=== PATIENT | female | born 1980 | race American Indian/Alaskan Native ===

== ENCOUNTER 2021-10-26 16:40 | Emergency (ER) | payer MEDICAID, SELFPAY ==
[2021-10-26 17:52] VITALS: BP 164/78; PULSE 108; RESP 16; TEMP 36.6; O2SAT 98; BMI 33.1
--- NOTE | 2021-10-26 19:06 | ED_ITS ---
HPI - Eye Problem <BEATRIZ Mcintosh - Last Filed: 10/26/21 21:22> General Chief complaint: Upper Respiratory Symptoms Stated complaint: conjunctivitis Time Seen by Provider: 10/26/21 18:33 Mode of arrival: Ambulatory History of Present Illness HPI Narrative: This is a 40-year-old female who presents to the emergency department complaining of thick goopy discharge coming from both of her eyes for the last 3 days. She states that this happened to her once before when she was in her 20s. Patient states that a toilet may have splashed up into her eyes after a flushed a few days ago. She thinks this is potentially why her eyes now have an infection. She denies any new STIs or any exposure to known STI. She denies any vision changes, eye pain with eye movement, headache, nausea vomiting or other symptom. She states that both of her eyes feel irritated. She endorses that she is allergic to erythromycin, ciprofloxacin, and amoxicillin. She states that she can have polymyxin B drops and this has worked for her in the [facility]. She denies any trauma or foreign body. Related Data Previous Rx's Medication Instructions Recorded polymyxin B sulfate 10,000 2 drp EYE-BOTH QID conjunctivitis 10/26/21 unit-trimethoprim 1 mg/mL eye 7 days #10 mL drops (Polytrim) Allergies Allergy/AdvReac Type Severity Reaction Status Date / Time amoxicillin AdvReac Intermediate Verified 10/26/21 17:58 ciprofloxacin [From Cipro] AdvReac Intermediate Verified 10/26/21 17:58 erythromycin base AdvReac Intermediate Verified 10/26/21 17:58 Review of Systems <BEATRIZ Mcintosh - Last Filed: 10/26/21 21:22> Review of Systems Narrative: Review of systems is negative for acute abnormalities unless otherwise noted in HPI Patient History <BEATRIZ Mcintosh - Last Filed: 10/26/21 21:22> Social History Smoking Status: Never smoker Smoking Status: Never smoker Substance Use Type: does not use Exam <BEATRIZ Mcintosh - Last Filed: 10/26/21 21:22> Narrative Exam Narrative: Reviewed vitals signs and nursing notes. General: cooperative, comfortable, in no acute distress, well groomed HEENT: symmetrical facial expressions, moist mucous membranes, EOMs intact, bilateral conjunctival injection and scleral injection bilaterally, copious amount of purulent/thick white/yellow discharge coming from bilateral conjunctiva. Culture obtained and is pending Cardiovascular: regular rate and rhythm, no peripheral edema, warm extremities Neuro: normal speech and cognition, A&O x3, ambulatory, clear speech Psych: mental status is grossly normal, congruent mood, normal affect, pleasant and cooperative Initial Vital Signs Initial Vital Signs: Vital Signs Temperature 97.8 F 10/26/21 17:52 Pulse Rate 108 H 10/26/21 17:52 Respiratory Rate 16 10/26/21 17:52 Blood Pressure 164/78 H 10/26/21 17:52 Pulse Oximetry 98 10/26/21 17:52 Oxygen Delivery Method 10/26/21 17:52 <Jaki Peace DO - Last Filed: 10/27/21 08:46> Initial Vital Signs Initial Vital Signs: Vital Signs Temperature 97.8 F 10/26/21 17:52 Pulse Rate 108 H 10/26/21 17:52 Respiratory Rate 16 10/26/21 17:52 Blood Pressure 164/78 H 10/26/21 17:52 Pulse Oximetry 98 10/26/21 17:52 Oxygen Delivery Method 10/26/21 17:52 Course <BEATRIZ Mcintosh - Last Filed: 10/26/21 21:22> Orders Ordered: ED Orders 10/26/21 18:09 Eye culture Stat Vital Signs Vital signs: Vital Signs - 8 hr 10/26/21 17:52 Temperature 97.8 F Pulse Rate 108 H Respiratory Rate 16 Blood Pressure 164/78 H Pulse Oximetry 98 Oxygen Delivery Method Room Air <Jaki Peace DO - Last Filed: 10/27/21 08:46> Orders Ordered: ED Orders 10/26/21 18:09 Eye culture Stat Vital Signs Vital signs: Vital Signs - 8 hr 10/26/21 17:52 Temperature 97.8 F Pulse Rate 108 H Respiratory Rate 16 Blood Pressure 164/78 H Pulse Oximetry 98 Oxygen Delivery Method Room Air MDM - Eye Problem <BEATRIZ Mcintosh - Last Filed: 10/26/21 21:22> MDM Narrative Medical decision making narrative: This is a 40-year-old female presents to the emergency department for evaluation of her bilateral conjunctivitis with thick white/yellow discharge coming from bilateral conjunctiva over the last 3 days, patient states it has been worsening. She has a history of allergy to amoxicillin, ciprofloxacin, and erythromycin but states she has tolerated polymyxin B drops in the past without difficulty. Culture obtained of discharge from her eye discharge and g stain shows scant Gram-positive cocci with occasional WBC. Patient was prescribed polymyxin B drops and given strict return precautions, encouraged to follow-up with Dr. Karen aldridge if this gets any worse or if her eyelids well to closure. Patient is appropriate and amenable to discharge home. Vital signs are stable on repeat examination is unremarkable. Patient has been informed of results. Patient has been given strict return to ER precautions for any new or worsening symptoms. Patient understands to follow up closely with outpatient providers as instructed. Patient understands plan and agrees to discharge home. All questions and concerns answered at this time. Discharge Plan Departure Patient Disposition: Home Clinical Impression: Conjunctivitis Qualifiers: Conjunctivitis type: acute Acute conjunctivitis type: unspecified Laterality: bilateral Qualified Code(s): H10.33 - Unspecified acute conjunctivitis, bilateral Instructions: Conjunctivitis Activity Restrictions/Additional Instructions: *You have been diagnosed with bilateral conjunctivitis. If this is not start to improve with your eyedrops, please follow-up with Dr. Karen aldridge or come to the emergency department for another evaluation. The culture will show us which type of bacteria this is and will call you if you antibiotic change. If you develop eye pain with eye movement or if your eyes swell shut, please come back to the emergency department. *What to do: *Please continue to take your regular medications as directed. [ x] New medication prescriptions sent to your pharmacy: [Yusra moore] [ ] New medication written as a paper prescription [ ] No new medications given *Please follow up with your primary care provider in 2-3 days, call for an appointment. Let them know you were seen in the Emergency Department and that we asked that you be seen for follow-up. We will electronically transmit a record of today's note if your PCP is in our system *If you do not have a primary care provider please contact [phone] to establish care with one of the [facility] primary care providers. *Return to Emergency Department if you should have any new, worsening, or concerning symptoms, such as [fever greater than 101F, chills, worsening pain, persistent vomiting or other bothersome symptoms]. Prescriptions: New polymyxin B sulf-trimethoprim [Polytrim] 10,000 unit- 1 mg/mL drops 2 drp EYE-BOTH QID 7 Days Qty: 10 1RF Visit Report Forms: Patient Portal/API <Jaki Peace DO - Last Filed: 10/27/21 08:46> Cosign ED Attending Cosignature Attestation: I was immediately available in the department for consultation. Documentation has been reviewed. I agree with assessment and plan.
--- NOTE | 2021-10-26 19:08 | PC.NURSE ---
Eye redness and pain x 2 days.
== END 2021-10-26 19:09 | disposition home or self-care (01) ==
PROVIDERS: Emergency Provider Nurse Practitioner Critical Care Medicine
DX: H10.33 Unspecified acute conjunctivitis, bilateral (principal)
CPT/HCPCS: 87070; 87147; 87205; 99281; 99282

== ENCOUNTER 2024-04-12 02:59 | Inpatient (IN) | payer OTHER, MEDICAID, SELFPAY ==
[2024-04-12] VITALS (14 sets, daily range): BP systolic 155–188; BP diastolic 70–100; PULSE 74–117; RESP 16–30; TEMP 36.4–37.1; O2SAT 90–99; BMI 31.9; BMI 37.3
--- NOTE | 2024-04-12 03:04 | DI.RAD.S_ITS ---
PROCEDURE: XR CHEST 1V INDICATIONS: sob TECHNIQUE: One view of the chest was acquired. COMPARISON: None. FINDINGS: Surgical changes and devices: None. Lungs and pleura: Lungs patchy opacities throughout the right lung most predominantly within the right upper lobe. Small right pleural effusion. No pneumothorax.. Mediastinum: Mediastinal contours appear normal. Heart size is normal. Bones and chest wall: No suspicious bony lesions. Overlying soft tissues appear unremarkable. IMPRESSION: Multifocal opacities of the right lung concerning for pneumonia. Dictated by: Luis Bhakta M.D. on 04/12/2024 at 7:59 Approved by: Luis Bhakta M.D. on 04/12/2024 at 8:01
--- NOTE | 2024-04-12 03:04 | ED.SOB ---
HPI - SOB/Dyspnea General Chief Complaint: Shortness of Breath/Dyspnea Stated Complaint: SOB Time Seen by Provider: 04/12/24 03:04 History of Present Illness HPI Narrative: 43-year-old female past medical history asthma can be the from home for evaluation of shortness of breath ongoing persistent for the past few days worsening today, states that she did not use her albuterol inhaler at home because it ?makes her feel weird. Patient denies any recent contacts denies any recent travel denies any other symptoms such as headache visual disturbances chest pain fever chills nausea vomiting abdominal pain or any other GI/ symptoms time. Related Data Previous Rx's Medication Instructions Recorded polymyxin B sulfate 10,000 2 drp EYE-BOTH QID conjunctivitis 10/26/21 unit-trimethoprim 1 mg/mL eye 7 days #10 mL drops (Polytrim) Allergies Allergy/AdvReac Type Severity Reaction Status Date / Time amoxicillin AdvReac Intermediate Verified 10/26/21 17:58 ciprofloxacin [From Cipro] AdvReac Intermediate Verified 10/26/21 17:58 erythromycin base AdvReac Intermediate Verified 10/26/21 17:58 Review of Systems Review of Systems Narrative: General: Denies fever, chills, weight loss HEENT: Denies headache, eye drainage, eye irritation, head trauma, sore throat, voice change Cardiovascular: Denies any chest pain, palpitations, shortness of breath, tachycardia Respiratory: Positive shortness of breath, cough, wheeze, denies stridor GI/: Denies any abdominal pain, nausea, vomiting, diarrhea, bright red blood per rectum, melanotic stools, urinary frequency, urinary retention, dysuria, hematuria MSK: Denies any joint pain, muscle pains, swelling Skin: Denies any rashes, lesions, discoloration Neuro: Denies any headache, lightheadedness, dizziness, fainting, weakness Psych: Denies SI/HI Patient History Social History Smoking Status: Never smoker Smoking Status: Never smoker Exam Narrative Exam Narrative: General: Cooperative, comfortable, well-developed, not in acute distress HEENT: Normocephalic, atraumatic, PERRLA, normal sclera, eyelids normal, Neck: Active full range of motion, atraumatic Chest: Normal to inspection, negative crepitus, no overlying erythema ecchymosis Respiratory: Mild expiratory wheezes in bilateral lower lung [place], Normal respiratory effort, not in acute respiratory distress, clear to auscultation bilaterally negative cough, tachypnea, rhonchi, rales Cardiology: Regular rate rhythm negative gallop, murmur, rubs GI/: Normal to inspection, soft, nonrigid, no tenderness to palpation, exam deferred MSK: Full range of active range of motion of all 4 extremities, atraumatic Skin: No rashes lesions noted Neuro: Alert awake oriented x3, moves all 4 extremities spontaneously, cranial nerves intact, able to answer all questions appropriately follows commands appropriately Psych: Cooperative, negative suicidal or homicidal ideations Initial Vital Signs Initial Vital Signs: Vital Signs Pulse Rate 114 H 04/12/24 03:05 Respiratory Rate 30 H 04/12/24 03:05 Blood Pressure 188/100 H 04/12/24 03:05 Pulse Oximetry 90 L 04/12/24 03:05 Oxygen Delivery Method Room Air 04/12/24 03:05 Course Orders Ordered: ED Orders 04/12/24 03:04 CXR [XR chest 1V] Stat 04/12/24 03:05 EKG-12 Lead Stat 04/12/24 03:11 EKG-12 Lead Routine 04/12/24 03:18 CBC Auto Diff [Complete Blood Count AUTO DIFF] Stat CMP [Comprehensive Metabolic Panel] Stat Covid-19 + FLU A/B + RSV - PCR Stat Lipase Stat MAG [Magnesium] Stat NT-proBNP (BNP-Adult 18+) Stat Troponin & CK Cardiac Panel Stat Discontinued Medications Albuterol (Albuterol 2.5 Mg/3 Ml Neb (Adult)) 2.5 mg INH NOW ONE Stop: 04/12/24 03:05 Last Admin: 04/12/24 03:16 Dose: 2.5 mg Documented By: LARON Aspirin (Aspirin 81 Mg Chew Tab) 324 mg PO NOW ONE Stop: 04/12/24 04:08 Furosemide (Furosemide 40 Mg/4 Ml Vial) 20 mg IV NOW ONE Stop: 04/12/24 04:02 Magnesium Sulfate (Magnesium Sulfate) 2 gm in 50 mls @ 150 mls/hr IV NOW ONE Stop: 04/12/24 03:33 Last Infusion: 04/12/24 03:48 Dose: Infused Documented By: CLAIRE Co-signed By: TORSTEN Admin: 04/12/24 03:25 Dose: 150 mls/hr Documented By: TORSTEN Co-signed By: CLAIRE Ceftriaxone Sodium 1,000 mg/ (Sodium Chloride) 100 mls @ 200 mls/hr IV NOW ONE Stop: 04/12/24 04:05 Doxycycline Hyclate 100 mg/ (Sodium Chloride) 100 mls @ 100 mls/hr IV NOW ONE Stop: 04/12/24 04:05 Methylprednisolone (Methylprednisolone 125 Mg/2 Ml Vial) 125 mg IV NOW ONE Stop: 04/12/24 03:05 Last Admin: 04/12/24 03:30 Dose: 125 mg Documented By: TORSTEN Vital Signs Vital signs: Vital Signs - 8 hr 04/12/24 03:05 04/12/24 03:17 Pulse Rate 114 H 117 H Respiratory Rate 30 H 20 Blood Pressure 188/100 H Pulse Oximetry 90 L 95 Oxygen Delivery Method Room Air Room Air Fraction of Inspired Oxygen 21 MDM - SOB/Dyspnea Differential Diagnosis Differential diagnosis: Likely congestive heart failure, community acquired pneumonia, asthma with exacerbation and other (Electrolyte abnormality) Lab Data 04/12/24 03:18 04/12/24 03:18 Labs: Lab Results 04/12/24 Range/Units 03:18 WBC 13.5 H (4.5-11.0) X10^3/uL RBC 4.60 (4.0-5.2) X10^6/uL Hgb 12.9 (12.0-16.0) g/dL Hct 38.1 (36-46) % MCV 82.8 (80-100) fL MCH 28.0 (26-34) PG MCHC 33.8 (30-36) % RDW 13.3 (11.6-14.8) % Plt Count 314 (150-400) X10^3/uL Neut % (Auto) 88.1 H (50-75) % Lymph % (Auto) 3.6 L (25-40) % Barber % (Auto) 7.9 (3-14) % Eos % (Auto) 0.2 L (2-4) % Baso % (Auto) 0.2 (0-2) % Neut # (Auto) 53263 H (6310-4805) /uL Lymph # (Auto) 500 L (7877-5486) /uL Barber # (Auto) 1100 H (0-900) /uL Eos # (Auto) 0 (0-450) /uL Baso # (Auto) 0 (0-100) /uL Sodium 123 L (137-145) mmol/L Potassium 4.0 (3.4-5.1) mmol/L Chloride 94 L (98-107) mmol/L Carbon Dioxide 23 (22-32) mmol/L BUN 13 (7-17) mg/dL Creatinine 0.95 (0.52-1.04) mg/dL Estimated GFR > 60 (>60) mL/min BUN/Creatinine Ratio 13.7 (6-22) Glucose 331 H (70-100) mg/dL Calcium 8.4 (8.4-10.2) mg/dL Magnesium 1.6 (1.6-2.3) mg/dL Total Bilirubin 0.5 (0.2-1.3) mg/dL AST 45 H (14-36) IU/L ALT 34 (<35) IU/L Alkaline Phosphatase 87 (38-126) U/L Total Creatine Kinase 336 H (30-135) U/L Troponin I 0.072 H (0.01-0.034) ng/mL NT-Pro-B Natriuret Pep 11013 H (<125) pg/mL Total Protein 7.2 (6.3-8.2) g/dL Albumin 3.6 (3.5-5.0) g/dL Globulin 3.6 (1.7-4.1) g/dL Albumin/Globulin Ratio 1.0 (1.0-2.8) Lipase 32 (23-300) U/L SARS-CoV-2 (PCR) Negative (Negative) Influenza A (RT-PCR) Flu a positive H (NEGATIVE) Influenza B (RT-PCR) Flu b negative (NEGATIVE) RSV (PCR) Negative (Negative) Imaging Data Chest x-ray: Radiologist's Impression: Preliminary read showing pleural effusion as well as patchy infiltrate consistent with possible pneumonia versus pulmonary edema, ECG Data Interpretation: EKG interpreted ED physician sinus tachycardia 114 beats per minute QTC [address] changes no STEMI MDM Narrative Medical decision making narrative: 43-year-old female past medical history of asthma presents from home for evaluation shortness of breath ongoing persistent for the past several days states he did not use her albuterol inhaler prior to arrival given the fact that it ?makes her feel weird ?patient had lab work imaging performed here in the emergency department, EKG nonischemic in nature, patient's sodium 123 however corrected for her glucose of 331 is 129. Patient with mild leukocytosis of 13.5. Patient's BNP significantly elevated at 12,600, troponin 0.072 most likely type 2 spilled given patient with CHF. Patient states no history of therefore new onset CHF has never had Lasix we will give 20 mg IV Lasix given naive. Chest x-ray consistent with pleural effusion as well as right upper lobe hazy infiltrate pneumonia versus pulmonary edema, however given the fact that patient has leukocytosis complaining of shortness of breath will treat for pneumonia, Rocephin doxy ordered Given significantly elevated BNP with new onset CHF patient require admission to the hospital The patient's management plan was discussed Dr. Judd, who agrees to admit the patient to their service and assumes care of this patient at this time. Full admission orders will be placed by the primary team. Discharge Plan Departure Patient Disposition: Admitted As Inpatient Clinical Impression: New onset of congestive heart failure, Pneumonia, Influenza A
--- NOTE | 2024-04-12 03:05 | EKG_ITS ---
[place] [id number] [place] [id number] Test Date: 2024-04-12 Pat Name: Portillo Terry Department: [facility] Room: Gender: Female Csm Consultant: : 1980 Requested By: Order Number: [id number] Reading MD: John Villegas Measurements Intervals [place] Rate: 114 P: 57 KS: 144 QRS: -5 QRSD: 88 T: 85 QT: 312 QTc: 430 Interpretive Statements Sinus tachycardia ST elevation in one lead, V2 Electronically Signed On 04-12-2024 8:01:58 PST by John Villegas
--- NOTE | 2024-04-12 03:11 | EKG_ITS ---
[place] [id number] [place] [id number] Test Date: 2024-04-12 Pat Name: Portillo Terry Department: [facility] Room: Gender: Female Curtain Hemmer Automatic: : 1980 Requested By: Order Number: [id number] Reading MD: John Villegas Measurements Intervals [place] Rate: 114 P: 64 AK: 152 QRS: 106 QRSD: 90 T: 40 QT: 310 QTc: 427 Interpretive Statements Sinus tachycardia Rightward axis Nonspecific ST abnormality Electronically Signed On 04-12-2024 13:54:32 PST by John Villegas
[2024-04-12] MEDS: ALBUTEROL 2.5 MG/3 ML NEB (ADULT) INH (03:16)
[2024-04-12] MEDS: MAGNESIUM SULFATE 2 GM/50 ML PIGGYBACK IV (03:25)
[2024-04-12 03:27] LABS: Add Manual Diff / Slide Review NO; Basophils Absolute Auto 0 /uL (0-100); Basophils Percent Auto 0.2 % (0-2); Eosinophils Absolute Auto 0 /uL (0-450); Eosinophils Percent Auto 0.2 % (2-4); Hematocrit 38.1 % (36-46); Hemoglobin 12.9 g/dL (12.0-16.0); Lymphocytes Absolute Auto 500 /uL (1100-4500); Lymphocytes Percent Auto 3.6 % (25-40); Mean Corpuscular HGB Conc 33.8 % (30-36); Mean Corpuscular Volume 82.8 fL (80-100); Monocytes Absolute Auto 1100 /uL (0-900); Monocytes Percent Auto 7.9 % (3-14); Neutrophils Absolute Auto 11900 /uL (1500-7000); Neutrophils Percent Auto 88.1 % (50-75); Platelet Count 314 X10^3/uL (150-400); Red Cell Distribution Width 13.3 % (11.6-14.8); White Blood Cell Count 13.5 X10^3/uL (4.5-11.0)
[2024-04-12] MEDS: methylPREDNISolone 125 MG/2 ML VIAL IV (03:30)
[2024-04-12 03:37] LABS: Alanine Aminotransferase 34 IU/L (<35); Albumin 3.6 g/dL (3.5-5.0); Alkaline Phosphatase 87 U/L (38-126); Aspartate Aminotransferase 45 IU/L (14-36); BUN Creatinine Ratio 13.7 (6-22); Bilirubin Total 0.5 mg/dL (0.2-1.3); Blood Urea Nitrogen 13 mg/dL (7-17); Calcium 8.4 mg/dL (8.4-10.2); Carbon Dioxide 23 mmol/L (22-32); Chloride 94 mmol/L (98-107); Creatine Kinase 336 U/L (30-135); Estimated Glomerular Filt Rate > 60 mL/min (>60); Globulin 3.6 g/dL (1.7-4.1); Glucose 331 mg/dL (70-100); HEMOLYSIS < 15 (0-50); Lipase 32 U/L (23-300); Magnesium 1.6 mg/dL (1.6-2.3); Sodium 123 mmol/L (137-145); Total Protein 7.2 g/dL (6.3-8.2)
[2024-04-12 03:48] LABS: NT-proBNP (BNP-Adult 18+) 12600 pg/mL (<125); Troponin I 0.072 ng/mL (0.01-0.034)
[2024-04-12 04:03] LABS: Influenza A - CEPHEID Flu A POSITIVE (NEGATIVE); Influenza B - CEPHEID Flu B NEGATIVE (NEGATIVE); Respiratory Syncytial Virus Negative (Negative)
[2024-04-12 04:12] LABS: COVID-19 CEPHEID 4-PLEX PCR Negative (Negative)
[2024-04-12] MEDS: FUROSEMIDE 40 MG/4 ML VIAL 20 MG IV (04:28)
[2024-04-12] MEDS: ASPIRIN 81 MG CHEW TAB 324 MG PO (04:29)
--- NOTE | 2024-04-12 04:36 | DI.ECHO.S_ITS ---
[facility]---------+ Hospital : : [address] : : [place] : : [id number] : : Phone: [phone] Echocardiogram Report + + :Name: NANCY HERNANDEZ Study Date: 04/12/2024 Height: 68 in : :Hospital ReadingLocation: Weight: 210 lb : : Gender: Female BSA: 2.1 m2 : :: 1980 Age: 43 yrs BP: 165/93 mmHg: :Reason For Study: CONGESTIVE HEART FAILURE : :Ordering Physician: PINO, : :MAGDIEL Alvarado MD Performed By: Natali Chris : :Referring: MAGDIEL PRINGLE MD : + + Interpretation Summary 1) Normal left ventricular thickness and size with moderately to severely systolic function (EF 30-35%). 2) Mildly enlarged right ventricle with normal function. 3) There is mild mitral regurgitation. 4) The IVC is dilated (diameter is greater than 2.1 cm) and it collapses less than 50% with a sniff. This suggests a high right atrial pressure of 15 mm Hg. 5) No prior Echo available for comparison. Procedure: A two-dimensional transthoracic echocardiogram with color flow and Doppler was performed. The study quality was technically adequate. There is no prior echocardiogram noted for this patient. The patient was in sinus rhythm with heart rates between 73-91 bpm during the exam. Left Ventricle: LV diastolic volume/ BSA of 71ml/m2 suggests moderate LV dilation. There is normal left ventricular wall thickness. The ejection fraction is estimated to be 30-35%. There is moderate to severe global hypokinesis of the left ventricle. Right Ventricle: The right ventricle is mildly dilated. The right ventricular systolic function is normal. Atria: The left atrium is mildly dilated. Right atrial size is normal. There is no Doppler evidence for an interatrial shunt. Mitral Valve: The mitral valve leaflets appear mildly thickened, but open well. The mitral valve leaflets appear to open well. There is mild mitral regurgitation. Aortic Valve: The aortic valve is trileaflet. The aortic valve opens well. There is no aortic valve stenosis. No aortic regurgitation is present. Tricuspid Valve: The tricuspid valve leaflets are thin and pliable. There is a trace or physiologic amount of tricuspid regurgitation. Pulmonary artery pressures cannot be estimated because of the lack of a measurable TR jet velocity. Pulmonic Valve: The pulmonic valve leaflets are thin and pliable; valve motion is normal. There is a trace or physiologic amount of pulmonic regurgitation. Great Vessels: The aortic root is normal size. The dimensions of the ascending aorta are normal. The IVC is dilated (diameter is greater than 2.1 cm) and it collapses less than 50% with a sniff. This suggests a high right atrial pressure of 15 mm Hg. Pericardium/ Pleura There is no pericardial effusion. There is no pleural effusion. MMode/2D Measurements & Calculations LVIDd: 6.1 cm LVOT diam: 2.2 cm LVIDs: 5.1 cm Ao root diam: 2.9 cm FS: 16.3 % asc Aorta Diam: 3.3 cm EPSS: 1.7 cm Ao Arch Diam (Prox Trans): 2.4 cm IVSd: 0.98 cm LVPWd: 0.96 cm LV edmonds. diameter/BSA (cm/m^2): 2.9 LV sys. diameter/BSA (cm/m^2): 2.4 LA A2 area: 24.9 cm2 RA long axis: 4.6 cm LA A4 area: 18.9 cm2 RA area: 16.0 cm2 LA length (vol): 4.7 cm RA vol: 47.5 ml LA vol: 85.6 ml RA : 22.8 ml/m2 LA vol index: 41.0 ml/m2 IVC diam: 2.2 cm RVD1 (basal): 4.1 cm RVD2 (mid): 3.3 cm TAPSE: 2.6 cm Doppler Measurements & Calculations Ao V2 max: 133.3 cm/sec LVOT Max Rishi: 93.8 cm/sec Ao V2 mean: 105.9 cm/sec LV V1 max P.5 mmHg Ao max P.1 mmHg LV V1 VTI: 20.5 cm Ao mean P.7 mmHg DEEPALI(I,D): 2.8 cm2 Ao V2 VTI: 28.6 cm DEEPALI(V,D): 2.7 cm2 sev ratio: 0.72 DEEPALI indexed to BSA (cm^2/m^2): 1.3 MV E max rishi: 90.3 cm/sec PA V2 max: 98.4 cm/sec MV A max rishi: 95.8 cm/sec PA V2 mean: 67.3 cm/sec MV E/A: 0.94 PA mean P.0 mmHg Med Peak E' Rishi: 6.3 cm/sec PA pr(Accel): 22.5 mmHg E/E' med: 14.3 Lat Peak E' Rishi: 7.0 cm/sec E/E' lat: 12.9 E/e' average: 13.6 MV dec time: 0.17 sec SV(LVOT): 79.8 ml Reading Physician:01:57 PM
[2024-04-12] MEDS: cefTRIAXone 1,000 MG in SODIUM CHLORIDE 0.9% 100 ML 200 MG IV ×2 (04:40→10:30)
--- NOTE | 2024-04-12 04:40 | PM.HP.1 ---
History of Present Illness History of Present Illness Chief complaint: SOB Narrative: 43F with only PMH of asthma presents with 2+ week h/o of worsening dyspnea. On arrival, she was hypertensive, tachycardic, and mildly hypoxic requiring supplemental oxygen. Initial diagnostics showed RUL pneumonia, influenza A, and new onset CHF with BNP 12,600 and mild troponin leak of 0.072. CK was mildly elevated at 336. She was also leucocytic at 13.5 with left shift, hyperglycemic at 331, and hyponatremic at 123. She was given a low dose of Lasix. Blood pressure has reduced some but she is still hypertensive at 160s/80s and tachycardic at 105. [facility] Social History Smoking Status: Never smoker Meds Home Medications and Allergies Home Medications Medication Instructions Recorded Confirmed Type polymyxin B sulfate 10,000 2 drp EYE-BOTH QID conjunctivitis 10/26/21 Rx unit-trimethoprim 1 mg/mL eye 7 days #10 mL drops (Polytrim) Allergies Allergy/AdvReac Type Severity Reaction Status Date / Time amoxicillin AdvReac Intermediate Verified 10/26/21 17:58 ciprofloxacin [From Cipro] AdvReac Intermediate Verified 10/26/21 17:58 erythromycin base AdvReac Intermediate Verified 10/26/21 17:58 Review of Systems Review of Systems Narrative: as per hpi. rest of 10-ros negative. Exam Vital Signs (past 8 hours): - 04/12/24 03:05 04/12/24 03:17 Pulse Rate 114 H 117 H Respiratory Rate 30 H 20 Blood Pressure 188/100 H Pulse Oximetry 90 L 95 Oxygen Delivery Method Room Air Room Air Fraction of Inspired Oxygen 21 Fraction of Inspired Oxygen 21 SaO2/FiO2 Ratio 447 Oxygen Delivery Method Room Air Narrative Exam Narrative: full exam not done d/t lack of staff to provide cart support x2 hours Const Other: appears weak, but not distressed. on RA oxygen currently HENMT Other: NC/AT Eyes Other: glasses, no icterus Resp Other: cannot assess Cardio Other: cannot assess GI Other: cannot assess Skin Other: no lesions evident Neuro Other: normal speech, eye contact Extrem Other: cannot assess but patient says he has had edema Psych Other: no anxiety Objective ECG Impression: Sinus tachycardia Rightward axis Nonspecific ST abnormality Imaging Chest x-ray: Radiologist's impression: patchy RUL opacity, pulmonary vascular congestion Labs 04/12/24 03:18 04/12/24 03:18 Labs: Laboratory Results - last 24 hr 04/12/24 03:18 WBC 13.5 H RBC 4.60 Hgb 12.9 Hct 38.1 MCV 82.8 MCH 28.0 MCHC 33.8 RDW 13.3 Plt Count 314 Neut % (Auto) 88.1 H Lymph % (Auto) 3.6 L [place] % (Auto) 7.9 Eos % (Auto) 0.2 L Baso % (Auto) 0.2 Neut # (Auto) 20190 H Lymph # (Auto) 500 L [place] # (Auto) 1100 H Eos # (Auto) 0 Baso # (Auto) 0 Sodium 123 L Potassium 4.0 Chloride 94 L Carbon Dioxide 23 BUN 13 Creatinine 0.95 Estimated GFR > 60 BUN/Creatinine Ratio 13.7 Glucose 331 H Calcium 8.4 Magnesium 1.6 Total Bilirubin 0.5 AST 45 H ALT 34 Alkaline Phosphatase 87 Total Creatine Kinase 336 H Troponin I 0.072 H NT-Pro-B Natriuret Pep 34557 H Total Protein 7.2 Albumin 3.6 Globulin 3.6 Albumin/Globulin Ratio 1.0 Lipase 32 SARS-CoV-2 (PCR) Negative Influenza A (RT-PCR) Flu a positive H Influenza B (RT-PCR) Flu b negative RSV (PCR) Negative Assessment & Plan Assessment and plan (1) Influenza A: Status: Acute (2) Pneumonia: Qualifiers: Pneumonia type: due to unspecified organism Laterality: right Lung location: upper lobe of lung Qualified Code(s): J18.9 - Pneumonia, unspecified organism Status: Acute (3) New onset of congestive heart failure: Status: Acute (4) Hyponatremia: Status: Acute (5) Hyperglycemia: Status: Acute Assessment & Plan narrative: # Acute new-onset CHF with acute hypoxic respiratory failure, POA - admit inpatient, medical, telemetry - Lasix 20 IV daily - Echocardiogram - lipid profile - strict I/O - daily weights # Acute influenza A infection, POA - out of window for Tamiflu - supportive care with nebulizers, oxygen to SaO2 >91% # Acute RUL community-acquired pneumonia without sepsis, POA - allergy to cephalosporins, macrolides - doxycycline empirically - check urinalysis w/ cx, urine legionella, urine strep pneumo # Hyponatremia, POA - daily labs - r/o legionella # Hyperglycemia, POA - daily labs - check A1c to r/o undiagnosed diabetes # Troponin leak, suspected Type 2 demand ischemia, POA - serial troponin - t/c cardiology consult if troponin continues to rise # Hypertensive urgency, POA - hold on ACEI and BB for now d/t dyspnea - hold hydralazine d/t tachycardia - if still high with lasix t/c clonidine # Obesity - outpatient follow up - r/o diabetes DVT Prophylaxis: LMWH Code: Full Diet: Cardiac, 2g Na Dispo: home when stable Time-Based Coding :: [TOTAL MINUTES] spent with patient and on the chart (including review of chart, obtaining history, exam, reviewing outside data, placing orders, documenting exam and treatment plan, and counseling patient) on [DATE].
[2024-04-12] MEDS: DOXYCYCLINE 100 MG in SODIUM CHLORIDE 0.9% 100 ML IV ×2 (05:00→17:29)
[2024-04-12 05:43] LABS: Add Manual Diff / Slide Review NO; Basophils Absolute Auto 100 /uL (0-100); Basophils Percent Auto 0.4 % (0-2); Eosinophils Absolute Auto 0 /uL (0-450); Hematocrit 30.9 % (36-46); Hemoglobin 10.6 g/dL (12.0-16.0); Lymphocytes Absolute Auto 200 /uL (1100-4500); Lymphocytes Percent Auto 1.7 % (25-40); Mean Corpuscular HGB Conc 34.5 % (30-36); Mean Corpuscular Hemoglobin 28.2 PG (26-34); Mean Corpuscular Volume 81.8 fL (80-100); Monocytes Absolute Auto 700 /uL (0-900); Monocytes Percent Auto 4.9 % (3-14); Neutrophils Absolute Auto 13500 /uL (1500-7000); Platelet Count 271 X10^3/uL (150-400); Red Blood Cell Count 3.77 X10^6/uL (4.0-5.2); Red Cell Distribution Width 13.4 % (11.6-14.8); White Blood Cell Count 14.5 X10^3/uL (4.5-11.0)
[2024-04-12 05:54] LABS: Cholesterol 239 mg/dL (140-199); HDL Cholesterol 100 mg/dL (40-60); LDL Cholesterol Calculated 115 mg/dL (<100); Triglycerides 119 mg/dL (35-150)
[2024-04-12 05:54] LABS: BUN Creatinine Ratio 14.8 (6-22); Blood Urea Nitrogen 13 mg/dL (7-17); Calcium 7.5 mg/dL (8.4-10.2); Carbon Dioxide 19 mmol/L (22-32); Chloride 96 mmol/L (98-107); Estimated Glomerular Filt Rate > 60 mL/min (>60); Glucose 335 mg/dL (70-100); HEMOLYSIS 20 (0-50); Magnesium 1.8 mg/dL (1.6-2.3); Potassium 3.7 mmol/L (3.4-5.1); Sodium 122 mmol/L (137-145)
[2024-04-12 05:56] LABS: Hemoglobin A1C% w Est Avg Glu 11.1 % (4.0-6.0)
[2024-04-12 06:06] LABS: Troponin I 0.087 ng/mL (0.01-0.034)
[2024-04-12] MEDS: ACETAMINOPHEN 325 MG TABLET 650 MG PO (06:32)
[2024-04-12] MEDS: PANTOPRAZOLE DR 20 MG TABLET PO (06:32)
[2024-04-12 06:35] LABS: TSH w/ Reflex to FT4 0.79 uIU/mL (0.47-4.68)
--- NOTE | 2024-04-12 07:56 | PM.HP.1 ---
History of Present Illness History of Present Illness Date Patient Seen: 04/12/24 Chief complaint: SOB Narrative: From night doctor: 43F with only PMH of asthma presents with 2+ week h/o of worsening dyspnea. On arrival, she was hypertensive, tachycardic, and mildly hypoxic requiring supplemental oxygen. Initial diagnostics showed RUL pneumonia, influenza A, and new onset CHF with BNP 12,600 and mild troponin leak of 0.072. CK was mildly elevated at 336. She was also leucocytic at 13.5 with left shift, hyperglycemic at 331, and hyponatremic at 123. She was given a low dose of Lasix. Blood pressure has reduced some but she is still hypertensive at 160s/80s and tachycardic at 105. Additional information: She presents with hyperglycemia, recent flu symptoms and positive flu swab as well as gross anasarca, hyponatremia and pulmonary edema. She notes a history of congestive heart failure associated with insulin from her perspective. She denies a history heart problems otherwise. She he was accompanied by her mother who recently showing her from [facility]. There apparently were multiple other hospitalizations where she left the hospital due to disagreements about her refusal on insulin. An echo was obtained today which appears to show a significant global hypokinesis of the ventricle with formal read pending. She was had diabetes for about 5 years her A1c is now 11.2. It sounds as though she really has not been taking medications recently. She was intolerant to metformin. She smokes very occasionally but denies alcohol, or any drug use. [facility] Social History household members: family Smoking Status: Never smoker Meds Home Medications and Allergies Home Medications Medication Instructions Recorded Confirmed Type polymyxin B sulfate 10,000 2 drp EYE-BOTH QID conjunctivitis 10/26/21 Rx unit-trimethoprim 1 mg/mL eye 7 days #10 mL drops (Polytrim) Allergies Allergy/AdvReac Type Severity Reaction Status Date / Time amoxicillin AdvReac Intermediate Verified 10/26/21 17:58 ciprofloxacin [From Cipro] AdvReac Intermediate Verified 10/26/21 17:58 erythromycin base AdvReac Intermediate Verified 10/26/21 17:58 Review of Systems Review of Systems Narrative: All else reviewed and otherwise unremarkable except as noted in the history and physical. Exam Vital Signs (past 8 hours): - 04/12/24 03:05 04/12/24 03:15 04/12/24 03:17 Temperature Pulse Rate 114 H 89 117 H Respiratory Rate 30 H 24 20 Blood Pressure 188/100 H 182/95 H Pulse Oximetry 90 L 92 95 Oxygen Delivery Method Room Air Room Air Oxygen Flow Rate Fraction of Inspired Oxygen 21 04/12/24 03:30 04/12/24 04:00 04/12/24 04:30 Temperature Pulse Rate 114 H 104 H 105 H Respiratory Rate 22 18 18 Blood Pressure 176/94 H 167/81 H 163/78 H Pulse Oximetry 92 94 92 Oxygen Delivery Method Room Air Oxygen Flow Rate Fraction of Inspired Oxygen 04/12/24 05:00 04/12/24 05:30 04/12/24 05:37 Temperature 98.7 F Pulse Rate 101 H 99 H Respiratory Rate 20 20 Blood Pressure 161/73 H 155/70 H Pulse Oximetry 93 94 Oxygen Delivery Method Oxygen Flow Rate Fraction of Inspired Oxygen 04/12/24 06:15 Temperature 98.4 F Pulse Rate 96 H Respiratory Rate 20 Blood Pressure 174/100 H Pulse Oximetry 93 Oxygen Delivery Method Oxygen Flow Rate 0 Fraction of Inspired Oxygen Fraction of Inspired Oxygen 21 SaO2/FiO2 Ratio 447 Oxygen Delivery Method Room Air Oxygen Flow Rate 0 Narrative Exam Narrative: NAD, alert and oriented, fluent speech, calm. Flat affect and she was very withdrawn. Normocephalic skull, EOMI, anicteric sclera, symmetric pupils. Oropharynx unremarkable, no droop. Neck supple, midline trachea, no adenopathy. Lungs clear, normal rate and effort. Heart regular, no murmur gallop or rub. Abdomen is soft, non distended and non tender. Extremities are notable for gross f edema. Skin is free of rash or lesions. Joints are not swollen or deformed. Judgment appears to be normal. She was anasarca through her abdomen and flanks Objective ECG Impression: Critical Test Result: STEMI Age and gender specific ECG analysis Sinus tachycardia ST elevation, consider anterior injury or acute infarct ACUTE IL / STEMI Imaging Chest x-ray: My impression: Pulmonary edema. Labs 04/12/24 05:35 04/12/24 12:50 Labs: Laboratory Results - last 24 hr 04/12/24 04/12/24 03:18 05:35 WBC 13.5 H 14.5 H RBC 4.60 3.77 L Hgb 12.9 10.6 L Hct 38.1 30.9 L MCV 82.8 81.8 MCH 28.0 28.2 MCHC 33.8 34.5 RDW 13.3 13.4 Plt Count 314 271 Neut % (Auto) 88.1 H 93.0 H Lymph % (Auto) 3.6 L 1.7 L [place] % (Auto) 7.9 4.9 Eos % (Auto) 0.2 L 0.0 L Baso % (Auto) 0.2 0.4 Neut # (Auto) 98802 H 80925 H Lymph # (Auto) 500 L 200 L [place] # (Auto) 1100 H 700 Eos # (Auto) 0 0 Baso # (Auto) 0 100 Sodium 123 L 122 L Potassium 4.0 3.7 Chloride 94 L 96 L Carbon Dioxide 23 19 L BUN 13 13 Creatinine 0.95 0.88 Estimated GFR > 60 > 60 BUN/Creatinine Ratio 13.7 14.8 Glucose 331 H 335 H Hemoglobin A1c 11.1 H Calcium 8.4 7.5 L Magnesium 1.6 1.8 Total Bilirubin 0.5 AST 45 H ALT 34 Alkaline Phosphatase 87 Total Creatine Kinase 336 H Troponin I 0.072 H 0.087 H NT-Pro-B Natriuret Pep 17415 H Total Protein 7.2 Albumin 3.6 Globulin 3.6 Albumin/Globulin Ratio 1.0 Triglycerides 119 Cholesterol 239 H LDL Cholesterol, Calc 115 H HDL Cholesterol 100 H Lipase 32 TSH 0.79 SARS-CoV-2 (PCR) Negative Influenza A (RT-PCR) Flu a positive H Influenza B (RT-PCR) Flu b negative RSV (PCR) Negative Assessment & Plan Assessment & Plan narrative: 1. Acute heart failure with unknown LV EF and pulmonary edema, present on admission and active. 2. Gross volume overload with anasarca and hypervolemic hyponatremia, present on admission and active. 3. Uncontrolled diabetes with hyperglycemia, present on admission and active. 4. Influenza a, outside of the window for Tamiflu. Present on admission and active. 5. Hypocalcemia, present on admission and active. 6. Demand ischemia, present on admission and active. Plan: -droplet isolation -aggressive diuresis with Lasix 40 IV q.12 hours. -serial troponins and echo to assess LV EF and rule out focal wall motion abnormalities. -she agrees to in insulin regular in bolus, we will use 10 units Q 4-6 hours as needed to get her glucose back down from over 500 to under 300. She will require 2 midnights in the hospital, supports inpatient status. Full resuscitation Mother is proxy decision maker. Time-Based Coding :: 45 min spent with patient and on the chart (including review of chart, obtaining history, exam, reviewing outside data, placing orders, documenting exam and treatment plan, and counseling patient) on 04/12. Quality MIPS - Admit I confirm the patient?s Advance Care Plan is present, Code status is documented, Surrogate decision maker is in patient?s record [If Yes, STOP here]: Yes MIPS - Meds 'Current medications' to include all prescriptions, [id number] products, herbals, cannabis/cannabidiol products, and vitamin/mineral/dietary (nutritional) supplements. I have utilized all available resources to obtain, update, or review the patient?s current medications. [If Yes, STOP here]: Yes
[2024-04-12] MEDS: FUROSEMIDE 20 MG/2 ML VIAL IV (08:19)
[2024-04-12] MEDS: ENOXAPARIN 40 MG/0.4 ML SYRINGE SUBCUT (08:19)
--- NOTE | 2024-04-12 11:53 | PC.NURSE ---
Pt's afternoon bsg is reading over 500. Pt refused her morning insulin and was provided education on this. This RN went to bedside and attempted to re-educate pt on importance of insulin for glucose control and infection treatment. Pt continues to refuse insulin. Dr. Villegas notified.
[2024-04-12 13:16] LABS: Alanine Aminotransferase 25 IU/L (<35); Albumin 2.6 g/dL (3.5-5.0); Albumin Globulin Ratio 0.9 (1.0-2.8); Alkaline Phosphatase 68 U/L (38-126); Aspartate Aminotransferase 32 IU/L (14-36); BUN Creatinine Ratio 20.2 (6-22); Bilirubin Total 0.3 mg/dL (0.2-1.3); Blood Urea Nitrogen 20 mg/dL (7-17); Calcium 7.5 mg/dL (8.4-10.2); Carbon Dioxide 21 mmol/L (22-32); Chloride 98 mmol/L (98-107); Creatine Kinase 217 U/L (30-135); Estimated Glomerular Filt Rate > 60 mL/min (>60); Globulin 2.9 g/dL (1.7-4.1); HEMOLYSIS < 15 (0-50); Magnesium 1.9 mg/dL (1.6-2.3); Potassium 3.9 mmol/L (3.4-5.1); Sodium 125 mmol/L (137-145); Total Protein 5.5 g/dL (6.3-8.2)
[2024-04-12 13:19] LABS: Glucose 513 mg/dL (70-100)
[2024-04-12 13:27] LABS: Troponin I 0.075 ng/mL (0.01-0.034)
[2024-04-12 13:32] LABS: Procalcitonin 1.17 ng/mL (<0.5)
[2024-04-12] MEDS: INSULIN REGULAR 100 UNIT/ML 3 ML VIAL 10 UNIT IV ×3 (13:37→23:33)
[2024-04-12] MEDS: FUROSEMIDE 40 MG/4 ML VIAL IV ×2 (13:41→21:23)
--- NOTE | 2024-04-12 15:16 | CM.DANOTE ---
Patient is a 43 yo female who was admitted INPT Status on 04/12/24 for New Onset CHF, Influenza A, Pneumonia. Pt has Medicaid for insurance and no PCP. EMR was reviewed. Per MD, pt with hx of DM poor controlled and asthma and admitted with Flu A and low sodium and getting IV-Abx and Echo and ongoing medical workup. SW met bedside with pt and her mother Celena and pt with closed eyes and very brief vague answers and not much interaction or engagement. Pt and mother confirm they live in [place] and have been out of state for a little while in [place] and recently came back to [place] and plan to return to [place] but not specific timeline. They confirm they have been staying with a friend but that it's not always an ideal set up but confirm they have a place to d/c to when pt stable for discharge. Pt has no PCP set up and not consistent with follow through on medication recommendations. They state that pt is in the process of applying for Social Security Disability and they might be getting herndon and food assist with Medicaid but unclear. Pt thinks she still has just straight Medicaid for insurance. Pt does not use DME for ambulation at baseline but states she slipped on the ice recently and her hip is sore but no need for imaging or treatment at this time. Preference for pt and mother is to d/c back to their friend's house at d/ and then eventually get back to [place]. They do not anticipate any further needs at d/c at this time. Plan: SW to follow closely for pt's medical progress towards plan of discharge home when medically stable. AZIZA Serra Discharge Planning/Care Management CM Discharge Assessment Start: 04/12/24 15:14 Freq: Status: Active Protocol: Document 04/12/24 15:14 BF (Rec: 04/12/24 15:16 BF [id number]) Discharge Planning Assessment Assigned Provider Education Specialist AZIZA Zabala DPOA/Assigned Designee Name informally mother Celena Contact Information [phone] Advance Directives? No Advance Directives on File No History Provided By Patient,Family Member,Medical Record Has Patient been admitted in last 30 No days? Prior Living Arrangements House Household Members family Type of transporation used prior to Relies on Others admit Independent with ADL's Yes Is patient alert and oriented? Yes: mostly, odd affect Needs Assistance With Managing Medications Caregiver for Another No Barriers to Discharge No Comment Might have just straight Medicaid for insurance, No PCP Discharge Plan Home Transportation Arrangement Mother bedside and confirms she can transport at d/c Whiteboard Updated in Patient Room with Yes name and ext. # of Provider Education Specialist Review Status In Process Please Provide Date Initial DC 04/12/24 Assessment Was Performed Next Review Type Continued Stay Review
[2024-04-12 21:41] LABS: UR Morphine/Opiate cutoff 300 Negative (Negative); Ur Creatinine Normal (Normal); Ur Specific Gravity Normal (Normal); Urine Amphetamines Negative (Negative); Urine Barbiturates Negative (Negative); Urine Benzodiazepines Negative (Negative); Urine Cocaine Negative (Negative); Urine MDMA Negative (Negative); Urine Methadone Negative (Negative); Urine Methamphetamines Negative (Negative); Urine Oxycodone Negative (Negative); Urine Phencyclidine Negative (Negative); Urine Tetrahydrocannabinol Negative (Negative); Urine Tricyclic Antidepressant Negative (Negative); Urine pH Normal (Normal)
[2024-04-12 21:47] LABS: Appearance Urine UA Clear; Color Urine UA Yellow
[2024-04-12 21:48] LABS: Bacteria Urine None Seen; Bilirubin Urine UA Negative (NEGATIVE); Culture Indicated Urine Cult Not Indicated; Glucose Urine UA NEGATIVE (Negative); Ketones Urine UA NEGATIVE (NEGATIVE); Leukocyte Esterase Urine UA NEGATIVE (NEGATIVE); Nitrite Urine UA NEGATIVE (Negative); Occult Blood Urine UA TRACE-INTACT (Negative); Protein Urine UA 2+ (Negative); RBC Urine 0-1/HPF (0-5/HPF); Specific Gravity Urine UA <=1.005 (1.000-1.035); Squamous Epithelial Cell Urine 0-1 /HPF (0-5/HPF); Urine Volume 10mL (spun); Urobilinogen Urine UA 0.2 E.U./dL (0.2); WBC Urine None Seen (0-5/HPF)
[2024-04-13] VITALS: BP 171/93; PULSE 87; TEMP 36.7; O2SAT 99
[2024-04-13 04:00] VITALS: BP 152/86; PULSE 86; RESP 16; TEMP 36.4; O2SAT 98
[2024-04-13] MEDS: DOXYCYCLINE 100 MG in SODIUM CHLORIDE 0.9% 100 ML IV ×2 (05:32→17:15)
--- NOTE | 2024-04-13 07:14 | PC.NURSE ---
Patient refused 07:00 dose of Lasix and reported tat she doesn't want to take lasix or insulin anymore stating that she doesn't like the way it makes her feel. Patient education provided. Will notify AM RN/ hospitalist.
[2024-04-13 08:00] VITALS: BP 178/100; PULSE 86; RESP 18; TEMP 36.3; O2SAT 98
[2024-04-13 08:42] LABS: Hematocrit 33.8 % (36-46); Hemoglobin 11.5 g/dL (12.0-16.0); Mean Corpuscular HGB Conc 34.2 % (30-36); Mean Corpuscular Volume 81.9 fL (80-100); Platelet Count 293 X10^3/uL (150-400); Red Blood Cell Count 4.13 X10^6/uL (4.0-5.2); Red Cell Distribution Width 13.3 % (11.6-14.8)
[2024-04-13 08:52] LABS: Alanine Aminotransferase 23 IU/L (<35); Albumin 2.7 g/dL (3.5-5.0); Albumin Globulin Ratio 0.9 (1.0-2.8); Alkaline Phosphatase 85 U/L (38-126); Aspartate Aminotransferase 32 IU/L (14-36); BUN Creatinine Ratio 27.3 (6-22); Bilirubin Total 0.3 mg/dL (0.2-1.3); Blood Urea Nitrogen 30 mg/dL (7-17); Calcium 7.5 mg/dL (8.4-10.2); Carbon Dioxide 26 mmol/L (22-32); Chloride 93 mmol/L (98-107); Estimated Glomerular Filt Rate > 60 mL/min (>60); Glucose 329 mg/dL (70-100); HEMOLYSIS < 15 (0-50); Potassium 3.7 mmol/L (3.4-5.1); Sodium 123 mmol/L (137-145); Total Protein 5.7 g/dL (6.3-8.2)
[2024-04-13 09:04] LABS: Troponin I 0.042 ng/mL (0.01-0.034)
[2024-04-13] MEDS: cefTRIAXone 1,000 MG in SODIUM CHLORIDE 0.9% 100 ML 200 MG IV (10:40)
--- NOTE | 2024-04-13 11:22 | PC.NURSE ---
Addendum entered by Claudia Hager R.N. 04/13/24 18:44: Patient refused lasix, blood sugar checks, and po medications all shift. She is taking her iv antibiotics. Plan is for her to discharge back to [place] tomorrow. Addendum entered by Claudia Hager R.N. 04/13/24 15:27: Patient has been sleeping and visiting with her friend (mom) in room, she has not needed anything at this time. Addendum entered by Claudia Hager R.N. 04/13/24 12:05: Patient refused her 1145 blood sugar check and her insulin. Original Note: Patient is alert but uncertain how oriented she is. She is refusing her Lasix, insulin, meformin, lovenox, and blood sugar checks. She has complaints everytime staff enters the room or tries to help her. Just went into see patient and she was complaining of her iv having some discomfort, pulled the dressing back and their was no redness or swelling at the insertion site and no signs and symptoms of infiltration noted. This RN decreased her iv antibiotic to a slower speed and she has been happy with this. Patients mentation seems off, not sure if she is understanding what medications she is refusing and the use of them. We have explained this many times and she does not want to listen.
[2024-04-13 12:00] VITALS: BP 148/87; PULSE 81; RESP 12; TEMP 36.4; O2SAT 97
--- NOTE | 2024-04-13 12:35 | CM.DPC ---
DCP Cont: Per MD and RN, pt now refusing some medications and tx recommendations and MD will determine if pt willing to comply or if not then possible discharge today. Mother remains bedside and will be able to transport at d/c. AZIZA Serra
[2024-04-13 16:00] VITALS: BP 147/77; PULSE 81; RESP 16; TEMP 36.5; O2SAT 99
--- NOTE | 2024-04-13 17:09 | PM.PN.1 ---
Subjective Subjective Interval history: Summary: Patient presented with diabetes out of control as well as heart failure and uncontrolled hypertension. Her A1c is 11. She has been refusing insulin of any sort until yesterday when she agreed to take regular for a short time. She got about 3 IV doses of 10 units for glucose over echo reveals EF of about 35% with global hypokinesis and she was diuresed for about 12 hours before beginning to refuse Lasix. Spent a lot of time with her today talking about she was going to end up getting sick from either heart failure, hypertension, or the diabetes and could possibly end up dying. Spite of lot of talking with her and her mom she continues to refuse medications. They want to continue antibiotics here until tomorrow morning when they going to leave the area and go back to [place]. Her glucose remains above 500 and she was being offered Lasix and insulin, all refuses are being documented. Subjective: She was little less short of breath but still very swollen. Exam Vital Signs (past 8 hours): - 04/13/24 12:00 Temperature 97.5 F L Pulse Rate 81 Respiratory Rate 12 Blood Pressure 148/87 H Pulse Oximetry 97 Oxygen Flow Rate 0 Fraction of Inspired Oxygen 21 SaO2/FiO2 Ratio 447 Oxygen Delivery Method Room Air Oxygen Flow Rate 0 Narrative Exam Narrative: NAD, alert and oriented, fluent speech, calm. Flat affect and she was very withdrawn. Normocephalic skull, EOMI, anicteric sclera, symmetric pupils. Oropharynx unremarkable, no droop. Neck supple, midline trachea, no adenopathy. Lungs clear, normal rate and effort. Heart regular, no murmur gallop or rub. Abdomen is soft, non distended and non tender. Extremities are notable for gross f edema. Skin is free of rash or lesions. Joints are not swollen or deformed. Judgment appears to be normal. She was anasarca through her abdomen and flanks Objective Labs 04/13/24 08:35 04/13/24 08:35 Labs: Laboratory Results - last 24 hr 04/12/24 04/12/24 04/13/24 21:10 21:10 08:35 WBC 14.0 H RBC 4.13 Hgb 11.5 L Hct 33.8 L MCV 81.9 MCH 28.0 MCHC 34.2 RDW 13.3 Plt Count 293 Sodium 123 L Potassium 3.7 Chloride 93 L Carbon Dioxide 26 BUN 30 H Creatinine 1.10 H Estimated GFR > 60 BUN/Creatinine Ratio 27.3 H Glucose 329 H D Calcium 7.5 L Total Bilirubin 0.3 AST 32 ALT 23 Alkaline Phosphatase 85 Troponin I 0.042 H Total Protein 5.7 L Albumin 2.7 L Globulin 3.0 Albumin/Globulin Ratio 0.9 L Urine Color Yellow Urine Appearance Clear Urine pH 6.0 Normal Ur Specific [place] <=1.005 Urine Protein 2+ H Urine Glucose (UA) Negative Urine Ketones Negative Urine Occult Blood Trace-intact Urine Nitrate Negative Urine Bilirubin Negative Urine Urobilinogen 0.2 Ur Leukocyte Esterase Negative Urine RBC 0-1/hpf Urine WBC None seen Ur Squamous Epith Cells 0-1 /hpf Urine Bacteria None seen Ur Culture Indicated? Cult not indicated Vol Urine Centrifuged 10ml (spun) U Opiates 300ng/mL cut Negative Ur Oxycodone Screen Negative Urine Methadone Screen Negative Ur Barbiturates Screen Negative U Tricyclic Antidepress Negative Ur Phencyclidine Scrn Negative Ur Amphetamines Screen Negative U Methamphetamines Scrn Negative Ur MDMA Scrn (Ecstasy) Negative U Benzodiazepines Scrn Negative Urine Cocaine Screen Negative U Marijuana (THC) Screen Negative Urine Specific [place] Normal Ur Creatinine Normal PFSH Social History household members: family Smoking Status: Never smoker Assessment & Plan Assessment & Plan narrative: 1. Acute heart failure with unknown LV EF and pulmonary edema, present on admission and active. 2. Gross volume overload with anasarca and hypervolemic hyponatremia, present on admission and active. 3. Uncontrolled diabetes with hyperglycemia, present on admission and active. 4. Influenza a, outside of the window for Tamiflu. Present on admission and active. 5. Hypocalcemia, present on admission and active. 6. Demand ischemia, present on admission and active. Plan: -droplet isolation -continue to offer Lasix IV and insulin IV. -continue antibiotics -when anticipate that her discharge be against medical advice as she will have hyponatremia, severe decompensated heart failure, and hyperglycemia at the time of discharge. Anticipate discharge on April 14 with her mother. She apparently lives in [place] in his visiting in the mother came out from [place]. The exact social details are somewhat murky and unclear. A urine tox screen was negative. Time-Based Coding :: [TOTAL MINUTES] spent with patient and on the chart (including review of chart, obtaining history, exam, reviewing outside data, placing orders, documenting exam and treatment plan, and counseling patient) on [DATE].
[2024-04-13 20:00] VITALS: BP 158/88; PULSE 85; RESP 16; TEMP 36.6; O2SAT 98
--- NOTE | 2024-04-13 22:19 | PC.NURSE ---
Addendum entered by Gabriella Lyles R.N. 04/14/24 06:51: Pt continued to refused all her care raimundo, she only let this nurse give her IV AB this am doxycidline and wants it to be infuse slower. Pt has a flat affect and mom is the one answering most of the questions. This morning Mom stated I think we are going to stay here one more day, my daughter is still too weak to be discharge. This nurse explained to the mom that I would pass the information to the krissy SHAFER. Original Note: Raimundo patient refused to have her blood sugar checks by the PCT. This nurse went in the room to do a physical assessment on the patient and pt was resting. Mom requested this nurse to let the patient sleep. Pt is schedule for IV antibiotics around 0500 which mom said it was ok to do. pt on tele SR 90's. Mom not wearing a mask in the room. She covers her mouth with a blanket when speaking with staff.
[2024-04-14 05:00] VITALS: BP 163/84; PULSE 93; RESP 16; TEMP 37.3; O2SAT 97
[2024-04-14] MEDS: DOXYCYCLINE 100 MG in SODIUM CHLORIDE 0.9% 100 ML IV ×2 (05:01→18:12)
--- NOTE | 2024-04-14 08:11 | PC.NURSE ---
@ 0805 I knocked on the door to say hello to Pt. I asked if Pt was in pain and if I could take her blood glucose. The Pt refused to have blood glucose checked and refused physical assessment. I explained the danger and possible harm from refusing care, but Pt still refused. Pt also refused AM medications and insulin (see MAR). I asked Pt if she wanted water or anything for comfort but also refused. I will continue to check on Pt, and offer help, but as of now all care is being refused.
[2024-04-14] MEDS: cefTRIAXone 1,000 MG in SODIUM CHLORIDE 0.9% 100 ML 200 MG IV (11:10)
[2024-04-14 13:09] LABS: Legionella pneumo Antigen Negative (Negative)
[2024-04-14 13:32] LABS: Hemoglobin 10.1 g/dL (12.0-16.0); Mean Corpuscular HGB Conc 34.8 % (30-36); Mean Corpuscular Hemoglobin 28.7 PG (26-34); Mean Corpuscular Volume 82.3 fL (80-100); Platelet Count 271 X10^3/uL (150-400); Red Blood Cell Count 3.52 X10^6/uL (4.0-5.2); Red Cell Distribution Width 13.2 % (11.6-14.8); White Blood Cell Count 6.1 X10^3/uL (4.5-11.0)
[2024-04-14 13:43] LABS: Alanine Aminotransferase 20 IU/L (<35); Albumin 2.2 g/dL (3.5-5.0); Albumin Globulin Ratio 0.8 (1.0-2.8); Alkaline Phosphatase 82 U/L (38-126); Aspartate Aminotransferase 29 IU/L (14-36); BUN Creatinine Ratio 20.6 (6-22); Bilirubin Total 0.2 mg/dL (0.2-1.3); Blood Urea Nitrogen 21 mg/dL (7-17); Calcium 7.5 mg/dL (8.4-10.2); Carbon Dioxide 27 mmol/L (22-32); Chloride 95 mmol/L (98-107); Estimated Glomerular Filt Rate > 60 mL/min (>60); Globulin 2.8 g/dL (1.7-4.1); Glucose 366 mg/dL (70-100); HEMOLYSIS < 15 (0-50); Sodium 124 mmol/L (137-145)
[2024-04-14 13:44] LABS: Magnesium 1.6 mg/dL (1.6-2.3)
--- NOTE | 2024-04-14 14:22 | CM.DPNOTE ---
DCP note [employer] reviewed EMR Per chart review/RN report, pt continues to refuse all/most care, but wants to stay another few nights for pneumonia. Per RN, high blood sugars, and EF of 35%. RN attempting throughout day to provide education on potential negative impacts of refusing care. Per Dr. Ca in morning rounds, sodium of 123 means he does not feel comfortable discharging pt even though she's refusing a lot of her care/she's not medically stable to dc at this time. Medical POC continues Plan: Preference for pt and mother is to d/c back to their friend's house at d/c and then eventually get back to [place]. They do not anticipate any further needs at d/c at this time. SW to follow closely for pt's medical progress towards plan of discharge home when medically stable. AZIZA Harper
--- NOTE | 2024-04-14 15:01 | PM.PN.1 ---
Subjective Subjective Interval history: Summary: Patient presented with diabetes out of control as well as heart failure and uncontrolled hypertension. Her A1c is 11. She states today that she believes the insulin gives her heart failure, tried to explain but to no avail this morning. They would like to stay until Sunday now, though it is difficult to ascertain the motivations other than now both in the room have the Flu. She is feeling less short of breath today, not on O2, just weak though that is improving as well. She was agreeable to continued lab draws, sodium is still 124. Glucose is elevated at 366. Have ordered urine studies. Patient has furosemide ordered but also not taking that. Exam Vital Signs (past 8 hours): Fraction of Inspired Oxygen 21 SaO2/FiO2 Ratio 447 Oxygen Delivery Method Room Air Oxygen Flow Rate 0 Narrative Exam Narrative: NAD, alert and oriented, calm but will not turn towards me, room was dark. Flat affect and she was very withdrawn. Extremities have 1-2+ edema bilateral LE. Skin is free of rash or lesions. Joints are not swollen or deformed. Judgment appears to be normal. Objective Labs 04/14/24 13:15 04/14/24 13:15 Labs: Laboratory Results - last 24 hr 04/12/24 04/14/24 08:00 13:15 WBC 6.1 D RBC 3.52 L Hgb 10.1 L Hct 29.0 L MCV 82.3 MCH 28.7 MCHC 34.8 RDW 13.2 Plt Count 271 Sodium 124 L Potassium 4.0 Chloride 95 L Carbon Dioxide 27 BUN 21 H Creatinine 1.02 Estimated GFR > 60 BUN/Creatinine Ratio 20.6 Glucose 366 H Calcium 7.5 L Magnesium 1.6 Total Bilirubin 0.2 AST 29 ALT 20 Alkaline Phosphatase 82 Total Protein 5.0 L Albumin 2.2 L Globulin 2.8 Albumin/Globulin Ratio 0.8 L L.pneumophila Antigen Negative [facility] Social History household members: family Smoking Status: Never smoker Assessment & Plan Assessment & Plan narrative: 1. Acute heart failure with unknown LV EF and pulmonary edema, present on admission and active. 2. Gross volume overload with anasarca and hypervolemic hyponatremia, present on admission and active. 3. Uncontrolled diabetes with hyperglycemia, present on admission and active. 4. Influenza a, outside of the window for Tamiflu. Present on admission and active. 5. Hypocalcemia, present on admission and active. 6. Demand ischemia, present on admission and active. Plan: -droplet isolation -continue to offer Lasix IV and insulin SQ. Patient refuses these medications today, continued to juvenile counselor on the benefits of these medications. -continue antibiotics of ceftriaxone and azithro -continues to be hyponatremic, though improving and now >125 corrected sodium given elevated glucose. She is agreeable to labs. Need urine evaluation for urine sodium and urine osm which are ordered but she has to have staff be able to collect a sample. If she continues to refuse measures needed to manage the conditions keeping her in the hospital, the benefits of hospitalization may outweight the risks. She apparently lives in [place] in his visiting in the mother came out from [place]. The exact social details are somewhat murky and unclear. A urine tox screen was negative. Code: Director Compensation-Based Coding :: [TOTAL MINUTES] spent with patient and on the chart (including review of chart, obtaining history, exam, reviewing outside data, placing orders, documenting exam and treatment plan, and counseling patient) on [DATE].
[2024-04-14] MEDS: MAGNESIUM CHLORIDE 64 MG TABLET 128 MG PO (15:02)
[2024-04-14 19:52] VITALS: BP 163/83; PULSE 82; RESP 18; TEMP 36.8; O2SAT 98
[2024-04-14] MEDS: SODIUM CHLORIDE 0.9% FLUSH 10 ML IV (21:38)
--- NOTE | 2024-04-14 22:40 | PC.NURSE ---
Patient is alert. Affect is flat and patient does not always respond to questions asked initially but will respond after question repeated. Breath sounds diminished with expiratory rhonchi in left lobes. RA sat was 98%. She does report feeling SOB with no increase during exertion. Refuses use of continuous pulse oximeter. Has intermittent, moist cough which has been non productive. HRR. BP elevated at 163/83 which is consistent with previous reading. Denied nausea. BT hypoactive and reports having had small BM earlier today. Voiding on toilet. Attempted to collect urine for ordered lab test but patient dumped collection hat so unable to send at this time; denies any dysuria. Ambulated to bathroom with 1 assist but takes very small steps and does seem weak. Encouraged to call for assistance when getting out of bed since she refuses to have bed alarm set. 1+ bilateral LE edema noted. Refused SCD's; educated on prevention of DVT. Denied pain. On droplet precautions as was positive for influenza A on admission. Refused to have CBG done tonight.
[2024-04-15 09:18] LABS: Add Manual Diff / Slide Review NO; Basophils Absolute Auto 0 /uL (0-100); Basophils Percent Auto 0.5 % (0-2); Eosinophils Absolute Auto 100 /uL (0-450); Eosinophils Percent Auto 1.8 % (2-4); Hematocrit 29.8 % (36-46); Hemoglobin 10.1 g/dL (12.0-16.0); Lymphocytes Absolute Auto 1100 /uL (1100-4500); Lymphocytes Percent Auto 21.8 % (25-40); Mean Corpuscular HGB Conc 34.1 % (30-36); Mean Corpuscular Hemoglobin 28.2 PG (26-34); Mean Corpuscular Volume 82.9 fL (80-100); Monocytes Absolute Auto 900 /uL (0-900); Monocytes Percent Auto 17.4 % (3-14); Neutrophils Absolute Auto 3100 /uL (1500-7000); Neutrophils Percent Auto 58.5 % (50-75); Platelet Count 252 X10^3/uL (150-400); Red Blood Cell Count 3.59 X10^6/uL (4.0-5.2); Red Cell Distribution Width 13.1 % (11.6-14.8); White Blood Cell Count 5.3 X10^3/uL (4.5-11.0)
[2024-04-15 09:35] LABS: Alanine Aminotransferase 21 IU/L (<35); Albumin 2.3 g/dL (3.5-5.0); Albumin Globulin Ratio 0.8 (1.0-2.8); Alkaline Phosphatase 77 U/L (38-126); Aspartate Aminotransferase 27 IU/L (14-36); BUN Creatinine Ratio 15.4 (6-22); Bilirubin Total 0.2 mg/dL (0.2-1.3); Blood Urea Nitrogen 14 mg/dL (7-17); Calcium 7.5 mg/dL (8.4-10.2); Carbon Dioxide 28 mmol/L (22-32); Chloride 96 mmol/L (98-107); Estimated Glomerular Filt Rate > 60 mL/min (>60); Globulin 2.8 g/dL (1.7-4.1); Glucose 436 mg/dL (70-100); HEMOLYSIS < 15 (0-50); Magnesium 1.6 mg/dL (1.6-2.3); Sodium 124 mmol/L (137-145); Total Protein 5.1 g/dL (6.3-8.2)
[2024-04-15] MEDS: DOXYCYCLINE HYCLATE 100 MG TABLET PO (09:39)
[2024-04-15] MEDS: CEFDINIR 300 MG CAPSULE PO (09:39)
--- NOTE | 2024-04-15 10:03 | PC.NURSE ---
Addendum entered by Althea Theodore R.N. 04/15/24 17:14: pt in better spirits and more animated this evening chatting with nurse- still refusing blood sugar checks and medications. it doesnt make my body feel good. Call light in reach. Original Note: Patient alert and oriented with flat affect. Doesnt always respond to questions. Refusing blood sugar checks and vital signs. Refusing all medications except PO antibiotics. Discussed with MD. Call light in reach.
--- NOTE | 2024-04-15 10:44 | DIET.CONS ---
Dietary Consultation Note Admission Date: 04/12/2024 04:20 Assessment: 43 y F admitted for HF and uncontrolled DM. Consulted for A1c 11.1%. Per rounds and EMR review, pt refusing most care-refusing all meds (including insulin) except PO antibiotics, BG checks, and vital signs despite educ on on negative impacts. Not appropriate for educ on DM management. Ht: 172.72 cm Wt: 110.9 kg BMI: 37.3 Last BM: 04/14/24 (04/14/24 18:50) MNA: Oliverio Score: 21 Diet: 04/12/24 Breakfast Carbohydrate Consistent Diet Diet Modifications: May Advance Diet as Tolerated: Yes Safety Tray needed?: No Carbohydrate level: Medium (3 CHO) Reflex DM orders: No Food Texture: Level 7 - Regular Liquid Consistency: Level 0 - Thin Nutrition Percent Meal Consumed 100% 04/14/24 18:00 Percent Meal Consumed 100% 04/13/24 18:00 Labs: RBC 3.59 X10^6/uL (4.0-5.2) L 04/15/24 09:07 Hgb 10.1 g/dL (12.0-16.0) L 04/15/24 09:07 Hct 29.8 % (36-46) L 04/15/24 09:07 Creatinine 0.91 mg/dL (0.52-1.04) 04/15/24 09:07 Hemoglobin A1c 11.1 % (4.0-6.0) H 04/12/24 03:18 NT-Pro-B Natriuret Pep 14514 pg/mL (<125) H 04/12/24 03:18 Electronically Signed by: Sary Veliz 04/15/24 10:44 Clinical Dietitian [address] [address]
--- NOTE | 2024-04-15 14:20 | PM.PN.1 ---
Subjective Subjective Interval history: Summary: Patient presented with diabetes out of control as well as heart failure and uncontrolled hypertension. Her A1c is 11. She states today that she believes the insulin gives her heart failure, tried to explain but to no avail this morning. They would like to stay until now, though it is difficult to ascertain the motivations other than now both in the room have the Flu. She is feeling less short of breath today, not on O2, just weak though that is improving as well. She was agreeable to continued lab draws, sodium is still 124. Glucose is elevated at >400 and she continues to refuse insulin. Have ordered urine studies. Refused IV antibiotics today so IV was removed and she was started on oral antibiotics. Patient had furosemide ordered but also not taking that. Exam Vital Signs (past 8 hours): Fraction of Inspired Oxygen 21 SaO2/FiO2 Ratio 447 Oxygen Delivery Method Room Air Oxygen Flow Rate 0 Narrative Exam Narrative: NAD, alert and oriented, calm but will not turn towards me, room was dark. Flat affect and she was very withdrawn. Extremities have 1-2+ edema bilateral LE. Skin is free of rash or lesions. Joints are not swollen or deformed. Judgment appears to be normal. Objective Labs 04/15/24 09:07 04/15/24 09:07 Labs: Laboratory Results - last 24 hr 04/15/24 09:07 WBC 5.3 RBC 3.59 L Hgb 10.1 L Hct 29.8 L MCV 82.9 MCH 28.2 MCHC 34.1 RDW 13.1 Plt Count 252 Neut % (Auto) 58.5 Lymph % (Auto) 21.8 L Anson % (Auto) 17.4 H Eos % (Auto) 1.8 L Baso % (Auto) 0.5 Neut # (Auto) 3100 Lymph # (Auto) 1100 Anson # (Auto) 900 Eos # (Auto) 100 Baso # (Auto) 0 Sodium 124 L Potassium 4.0 Chloride 96 L Carbon Dioxide 28 BUN 14 Creatinine 0.91 Estimated GFR > 60 BUN/Creatinine Ratio 15.4 Glucose 436 H Calcium 7.5 L Magnesium 1.6 Total Bilirubin 0.2 AST 27 ALT 21 Alkaline Phosphatase 77 Total Protein 5.1 L Albumin 2.3 L Globulin 2.8 Albumin/Globulin Ratio 0.8 L [facility] Social History household members: family Smoking Status: Never smoker Assessment & Plan Assessment & Plan narrative: 1. Acute heart failure with unknown LV EF and pulmonary edema, present on admission and active. 2. Gross volume overload with anasarca and hypervolemic hyponatremia, present on admission and active. 3. Uncontrolled diabetes with hyperglycemia, present on admission and active. 4. Influenza a, outside of the window for Tamiflu. Present on admission and active. 5. Hypocalcemia, present on admission and active. 6. Demand ischemia, present on admission and active. Plan: -droplet isolation -continue to offer Lasix PO and insulin SQ. Patient refuses these medications today, continued to savings counselor on the benefits of these medications. -continue antibiotics of ceftriaxone and azithro -continues to be hyponatremic, though improving and now >125 corrected sodium given elevated glucose. She is agreeable to labs. Need urine evaluation for urine sodium and urine osm which are ordered. If she continues to refuse measures needed to manage the conditions keeping her in the hospital, the benefits of hospitalization likely outweight the risks. She apparently lives in [place] in his visiting in the mother came out from [place]. The exact social details are somewhat murky and unclear. A urine tox screen was negative. Code: Full Dispo: If she continues to refuse above interventions discharge tomorrow Time-Based Coding :: [TOTAL MINUTES] spent with patient and on the chart (including review of chart, obtaining history, exam, reviewing outside data, placing orders, documenting exam and treatment plan, and counseling patient) on [DATE].
[2024-04-15 15:49] VITALS: BP 183/98; PULSE 79; RESP 16; TEMP 36.3; O2SAT 100
--- NOTE | 2024-04-15 16:13 | CM.DPNOTE ---
DCP note ASSEMBLER DRY CELL AND BATTERY reviewed EMR Per RN, pt continues to deny most treatment/care. blood sugars remain 400s jocy. Pt mom reports she cannot dc tomorrow due to having a heavy flow menstruation and concerns about bleeding on the seats of the car. Per provider in morning rounds, sodium remains 124. if pt continues to deny care/treatment, may consider discharging tomorrow. ASSEMBLER [employer]Y CELL AND BATTERY met with pt in room. mom not present during meeting. ASSEMBLER [employer]Y CE[employer] AND BATTERY gave pt mult community resources including access to basic needs/clothing/housing information/utility assistance/etc. pt appreciative. pt reports understanding that she cannot remain admitted for concerns with bleeding in the car for her heavy period. pt reports understanding she may dc tomorrow and is in agreement with plan. denies other CM/DCP needs from me at this time. Plan: Preference for pt and mother is to d/c back to their friend's house at d/c and then eventually get back to [place]. They do not anticipate any further needs at d/c at this time. SW to follow closely for pt's medical progress towards plan of discharge home when medically stable. Liliane Durant, AZIZA
[2024-04-15 20:00] VITALS: BP 157/93; PULSE 73; RESP 18; TEMP 36.6; O2SAT 98
--- NOTE | 2024-04-15 20:00 | PC.NURSE ---
Pt refusing nursing assessment and medications at this time. Pt seemed very agitated toward mother who is in the room.
--- NOTE | 2024-04-15 21:20 | PC.NURSE ---
HYDRATOR OPERATOR Note: Pts mom called and asked for toilet paper and a hot coffee. When I entered the room patients mother stated you all need to leave us alone I informed her that I had her coffee and I was changing out the toilet paper. I was granted access to the bathroom. When changing the toilet paper the mother stated in the room towards the patient it's not spring out side, we need to stay another day when the patients mother started to get more verbal to the patient she then asked me the HYDRATOR OPERATOR what are you doing in there! why is she in here! in a very aggressive voice. The patient stated that I was there changing the toilet paper that was asked for. The patient and her mother started to have a heated argument between each other when I started to leave the room. telex operator was notified about the situation on the room.
--- NOTE | 2024-04-16 11:15 | PC.NURSE ---
ORACLE R12 DEVELOPER went into see pt at the beginning of shift, pt refused vitals both the mother and the pt were very rude to staff, RN went in to talk to pt again later in the morning and pt refused alll care again, refused am meds and stated they are going home, pt left room at 1115 today.
--- NOTE | 2024-04-16 11:17 | CM.DPNOTE ---
Addendum entered by AZIZA Harper 04/16/24 11:22: Add to previous note: HOME ASSESSMENT NURSE updated provider of pt leaving AMA SL Original Note: DCP note HOME ASSESSMENT NURSE reviewed EMR Per RN note, pt refusing care throughout night/morning. Per lab, refused any lab work draws. Per provider in morning rounds, plan to dc her today. dc order not yet placed. HOME ASSESSMENT NURSE attempted to meet with pt and mom in room, walking out AMA as this HOME ASSESSMENT NURSE was approaching. refused to sign AMA ppwk, witnessed by MARYURI Perez and MARY Hankins. P: pt left AMA, resources previously provided. CM team will continue to follow as needed AZIZA Harper
--- NOTE | 2024-04-16 11:17 | PC.NURSE ---
1115: Patient and patient's mother came out of room 213. Patient was fully dressed with belongings in a wheelchair. Patient's mother was stating We have to go, I have to get over the pass. You have been trying to kick us out for two days. [facility] offered to get provider or CM, Patient's mother states no, we are leaving. [facility] offer to print AMA form. Patient's Mom states We don't have to sign anything. We are leaving. I offered to review discharge with patient, she would not turn to face this RN, standing by the elevator, I inquired about IV access and belongings, Patient states the elevator is here, let's go. Coordinator reports patient did not have IV access. CM, Provider and Primary RN notified of AMA.
--- NOTE | 2024-04-16 11:24 | P.DS_ITS ---
History of Present Illness History of Present Illness Chief complaint: SOB Narrative: From night doctor: 43F with only PMH of asthma presents with 2+ week h/o of worsening dyspnea. On arrival, she was hypertensive, tachycardic, and mildly hypoxic requiring supplemental oxygen. Initial diagnostics showed RUL pneumonia, influenza A, and new onset CHF with BNP 12,600 and mild troponin leak of 0.072. CK was mildly elevated at 336. She was also leucocytic at 13.5 with left shift, hyperglycemic at 331, and hyponatremic at 123. She was given a low dose of Lasix. Blood pressure has reduced some but she is still hypertensive at 160s/80s and tachycardic at 105. Additional information: She presents with hyperglycemia, recent flu symptoms and positive flu swab as well as gross anasarca, hyponatremia and pulmonary edema. She notes a history of congestive heart failure associated with insulin from her perspective. She denies a history heart problems otherwise. She he was accompanied by her mother who recently showing her from [facility]. There apparently were multiple other hospitalizations where she left the hospital due to disagreements about her refusal on insulin. An echo was obtained today which appears to show a significant global hypokinesis of the ventricle with formal read pending. She was had diabetes for about 5 years her A1c is now 11.2. It sounds as though she really has not been taking medications recently. She was intolerant to metformin. She smokes very occasionally but denies alcohol, or any drug use. Discharge Providers Provider Date of admission: 04/12/24 04:20 Discharge Date: 04/16/24 Consults: 04/12/24 06:24 Consult to FLAT SPRING ASSEMBLER - Computer Systems Technology Instructor Routine Comment: Computer Systems Technology Instructor Consult needed for:: Has no money 04/12/24 08:10 Consult to Dietitian, Adult Routine Comment: Reason For Exam: new diabetes, A1c 11.1 Discharge provider: John Villegas MD Summary Hospital Course Discharge Diagnosis: 1. Acute heart failure with unknown LV EF and pulmonary edema, present on admission and active. 2. Gross volume overload with anasarca and hypervolemic hyponatremia, present on admission and active. 3. Uncontrolled diabetes with hyperglycemia, present on admission and active. 4. Influenza a, outside of the window for Tamiflu. Present on admission and active. 5. Hypocalcemia, present on admission and active. 6. Demand ischemia, present on admission and active. 7. AMA Discharge Hospital Course: She presented with dyspnea and was found to have evidence of heart failure with hypervolemic hyponatremia related to systolic heart failure. An echo revealed an EF of 35% with global hypokinesis. She was also uncontrolled with regard to her diabetes with a glucose of over 500. There is a question and ammonia and she was started on IV antibiotics. Unfortunately, she only accepted regular insulin and only for about 12 hours and took Lasix only for about 3 doses before declining any further medications. She was police about it being allergic to insulin and it causing heart problems. She also feels that she was not tolerate diuretics. She was offered other diuretics such as Bumex but declined anything else as well. She was very guarded when trying to make plans with her regarding her treatment for heart failure, hyperglycemia and demand ischemia as well as influenza a. She was drop up precautions for her influenza. She also did have hypocalcemia which was corrected. Her mother was here to visit with her and also had similar beliefs to those noted above. She left AMA on 04/16. Status at Discharge Cognitive/behavioral status at discharge: oriented Functional status at discharge: independent ambulation Overall status at discharge: patient is not back to baseline Time Spent with Patient Time spent: Greater than 30 minutes Exam Vital Signs (past 8 hours): Fraction of Inspired Oxygen 21 SaO2/FiO2 Ratio 447 Oxygen Delivery Method Room Air Oxygen Flow Rate 0 Narrative Exam Narrative: Not seen, walked out Objective ECG Impression: Sinus tachycardia Rightward axis Nonspecific ST abnormality Imaging Multiple studies:: Radiologist's impression: ECHO: 1) Normal left ventricular thickness and size with moderately to severely systolic function (EF 30-35%). 2) Mildly enlarged right ventricle with normal function. 3) There is mild mitral regurgitation. 4) The IVC is dilated (diameter is greater than 2.1 cm) and it collapses less than 50% with a sniff. This suggests a high right atrial pressure of 15 mm Hg. 5) No prior Echo available for comparison. CXR: Multifocal opacities of the right lung concerning for pneumonia. Labs 04/15/24 09:07 04/15/24 09:07 [facility] Social History household members: family Smoking Status: Never smoker Discharge Assessment & Plan Assessment and Plan Assessment: 1. Acute heart failure with unknown LV EF and pulmonary edema, present on admission and active. 2. Gross volume overload with anasarca and hypervolemic hyponatremia, present on admission and active. 3. Uncontrolled diabetes with hyperglycemia, present on admission and active. 4. Influenza a, outside of the window for Tamiflu. Present on admission and active. 5. Hypocalcemia, present on admission and active. 6. Demand ischemia, present on admission and active. 7. AMA Discharge Plan of Treatment: AMA Discharge. Discharge Plan Discharge Plan Patient Disposition: Left Against Medical Advice Discharge orders & Medications Prescriptions: Discontinued polymyxin B sulf-trimethoprim [Polytrim] 10,000 unit- 1 mg/mL drops 2 drp EYE-BOTH QID 7 Days Qty: 10 1RF Diet/Activity/Treatments Diet: Carb-consistent/Diabetic Visit Report/Discharge Packet Instructions: DI for Hyperglycemia -- Adult Stand Alone Forms: Patient Portal/API, Congestive Heart Failure
[2024-04-16 14:58] LABS: Sodium Urine Random 29 mmol/L (30-90)
[2024-04-16 15:10] LABS: Osmolality Urine 268 mOsmol/kg (.)
== END 2024-04-16 12:00 | disposition left against medical advice (07) | DRG 194 ==
LOC: ED 04:05 → AC 04:25
PROVIDERS: Hospitalist; Internal Medicine; Admitting Provider Internal Medicine; Emergency Provider Student in an Organized Health Care Education/Training Program; Referring Provider Student in an Organized Health Care Education/Training Program; Visit Provider Internal Medicine
DX: I11.0 Hypertensive heart disease with heart failure (principal); J18.9 Pneumonia, unspecified organism; J96.01 Acute respiratory failure with hypoxia; I50.23 Acute on chronic systolic (congestive) heart failure; J10.1 Influenza due to other identified influenza virus with other respiratory manifestations; E87.1 Hypo-osmolality and hyponatremia; I16.0 Hypertensive urgency; E66.9 Obesity, unspecified; E11.65 Type 2 diabetes mellitus with hyperglycemia; E83.51 Hypocalcemia; I24.89 Other forms of acute ischemic heart disease; J45.909 Unspecified asthma, uncomplicated; T38.3X6A Underdosing of insulin and oral hypoglycemic [antidiabetic] drugs, initial encounter; Z91.148 Patient's other noncompliance with medication regimen for other reason; Z53.29 Procedure and treatment not carried out because of patient's decision for other reasons; Z68.37 Body mass index [BMI] 37.0-37.9, adult
CPT/HCPCS: 0241U; 36415; 71045; 80048; 80053; 80061; 80305; 81001; 82550; 82962; 83036; 83690; 83735; 83880; 83935; 84145; 84300; 84443; 84484; 85025; 85027; 87449; 87899; 93005; 93306; 94640; 96365; 96367; 96375; 99284; 99285; J0696; J1650; J1815; J1940; J2919; J3475; J7613